=== PATIENT | male | born 1995 | race Two or more races ===

== ENCOUNTER 2020-10-14 16:48 | Emergency (ER) | payer SELFPAY ==
[~2020-10-14] VITALS: Ht 182.9 cm; Wt 77.2 kg
[2020-10-14 16:55] VITALS: BP 115/64
--- NOTE | 2020-10-14 17:20 | PHYS DOC ---
Past Medical History Past Medical History: No Pertinent History Past Surgical History: No Surgical History Alcohol Use: None Drug Use: None General Adult EDM: Chief Complaint: generalized fatigue and myalgias HPI: HPI: 25-year-old male presenting the emergency department today with fatigue and generalized myalgias with decreased energy levels. This all started about 2 to 3 days ago. He denies having nuchal rigidity or neck pain. He has intermittently had some abdominal pain in the suprapubic region. He describes it as sharp and intermittent without alleviating factors. He denies any fevers but has had chills. He reports being tested for COVID-19 which was negative and he thinks influenza was tested along with that. Review of systems negative for chest pain rash nuchal rigidity. All other review of systems negative. ed course: 25-year-old female presenting with flulike symptoms. Patient's vital signs here are unremarkable with a normal exam. His abdomen is soft and nontender negative McBurney's point. Recommend he keep drinking IV fluids take ibuprofen as needed for pain and follow-up with his doctor tomorrow. I offered to repeat test him for COVID-19 and influenza which he declined at this time ( false negative?). He can return if he has any worsening or concerning symptoms. Heart Score: Risk Factors: Risk Factors: DM, Current or recent (<one month) smoker, HTN, HLP, family history of CAD, obesity. Risk Scores: Score 0 - 3: 2.5% MACE over next 6 weeks - Discharge Home Score 4 - 6: 20.3% MACE over next 6 weeks - Admit for Clinical Observation Score 7 - 10: 72.7% MACE over next 6 weeks - Early Invasive Strategies Physical Exam: PE: Constitutional: Well developed, well nourished, no acute distress, non-toxic a ppearance. [] HENT: Normocephalic, atraumatic, bilateral external ears normal, oropharynx moist, no oral exudates, nose normal. [] Normal range of motion the neck without any nuchal rigidity. Negative Kernig sign. Negative McBurney's point. Eyes: PERRLA, EOMI, conjunctiva normal, no discharge. [] Neck: Normal range of motion, no tenderness, supple, no stridor. [] Cardiovascular:Heart rate regular rhythm, no murmur [] Lungs & Thorax: Bilateral breath sounds clear to auscultation [] Abdomen: Bowel sounds normal, soft, no tenderness, no masses, no pulsatile masses. [] Nontender in McBurney's point. Negative Quiñonez sign. Nondistended. Skin: Warm, dry, no erythema, no rash. [] Back: No tenderness, no CVA tenderness. [] Extremities: No tenderness, no cyanosis, no clubbing, ROM intact, no edema. [] Neurologic: Alert and oriented X 3, normal motor function, normal sensory function, no focal deficits noted. [] Psychologic: Affect normal, judgement normal, mood normal. [] EKG: EKG: [] Radiology/Procedures: Radiology/Procedures: [] Course & Med Decision Making: Course & Med Decision Making Pertinent Labs and Imaging studies reviewed. (See chart for details) [] Dragon Disclaimer: Dragon Disclaimer: This electronic medical record was generated, in whole or in part, using a voice recognition dictation system. Departure Departure Impression: Primary Impression: Flu-like symptoms Disposition: 01 DC HOME SELF CARE/HOMELESS Condition: STABLE Referrals: NO PCP (PCP) Patient Instructions: Medical Screening Exam Additional Instructions: Follow-up with your primary physician in 1 to 2 days. Return to the emergency department if you have any new or concerning findings. JESUS ALBERTO DE LEÓN MD Oct 14, 2020 17:20
== END 2020-10-14 17:25 | disposition home or self-care (01) ==
LOC: ER 16:48
DX: R10.84 Generalized abdominal pain (principal); R53.83 Other fatigue
CPT/HCPCS: 99281